=== PATIENT | female | born 1975 | race Caucasian/White ===

== ENCOUNTER 2016-12-15 15:41 | Outpatient (CLI) | payer OTHER ==
--- NOTE | 2016-12-17 09:09 | Mammography Report ---
BILATERAL DIGITAL SCREENING MAMMOGRAM with CAD: 12/15/16 15:41:00 CLINICAL: Baseline screening. FINDINGS: The breasts are heterogeneously dense, which may obscure small masses. No mass, architectural distortion or suspicious calcifications. IMPRESSION: No mammographic evidence of malignancy. BI-RADS CATEGORY: 1 - - Negative RECOMMENDATION: Routine mammographic screening in one year. COMMENT: Patient follow-up letters are generated by our [employer] application.
== END 2016-12-15 15:42 | disposition home or self-care (01) ==
LOC: SPVWC 15:41
PROVIDERS: ATTEND Obstetrics & Gynecology
DX: Z12.31 Encounter for screening mammogram for malignant neoplasm of breast (principal)
CPT/HCPCS: 77067; G0202

== ENCOUNTER 2017-12-23 15:52 | Outpatient (CLI) | payer OTHER ==
--- NOTE | 2017-12-25 08:20 | Mammography Report ---
BILATERAL DIGITAL SCREENING MAMMOGRAM with CAD: 12/23/17 15:52:00 CLINICAL: Routine screening. COMPARISON:12/15/16 FINDINGS: The breasts are heterogeneously dense, which may obscure small masses. No mass, architectural distortion or suspicious calcifications. IMPRESSION: No mammographic evidence of malignancy. BI-RADS CATEGORY: 1 - - Negative RECOMMENDATION: Routine mammographic screening in one year. COMMENT: Patient follow-up letters are generated by our [employer] application.
== END 2017-12-23 15:53 | disposition home or self-care (01) ==
LOC: SPVWC 15:52
PROVIDERS: ATTEND Obstetrics & Gynecology
DX: Z12.31 Encounter for screening mammogram for malignant neoplasm of breast (principal)
CPT/HCPCS: 77067

== ENCOUNTER 2018-12-31 09:53 | Outpatient (CLI) | payer OTHER ==
--- NOTE | 2018-12-31 14:17 | Mammography Report ---
BILATERAL DIGITAL SCREENING MAMMOGRAM with CAD and BILATERAL DIGITAL BREAST TOMOSYNTHESIS (DBT) : 12/31/18 00:00:00 CLINICAL: Routine screening. COMPARISON:12/23/17 and 12/15/16 FINDINGS: The breasts are heterogeneously dense, which may obscure small masses. Left asymmetries on zarina views (CC images 26 and 14 and MLO images 14 and 27) require additional imaging. No architectural distortion or suspicious calcifications. The right breast is negative. IMPRESSION: Left asymmetries requiring additional workup. BI-RADS CATEGORY: 0 - - Needs Additional Imaging RECOMMENDATION: Recall for left MLO and CC spot magnification views and left lower inner breast ultrasound. COMMENT: Patient follow-up letters are generated by our [employer] application.
== END 2018-12-31 09:54 | disposition home or self-care (01) ==
LOC: SPVWC 09:53
PROVIDERS: ATTEND Obstetrics & Gynecology
DX: Z12.31 Encounter for screening mammogram for malignant neoplasm of breast (principal)
CPT/HCPCS: 77063; 77067

== ENCOUNTER 2020-10-30 15:03 | Outpatient (CLI) | payer OTHER ==
--- NOTE | 2020-10-30 16:30 | Ultrasound Report ---
BILATERAL DIGITAL DIAGNOSTIC MAMMOGRAM WITH CAD CONVENTIONAL, 10/30/2020 LEFT LIMITED BREAST ULTRASOUND CLINICAL INFORMATION / INDICATION: Patient presents for follow-up of previously described probably be nign nodules in the left breast. TECHNIQUE: Digital bilateral mammographic imaging was performed. Limited ultrasound was performed. Th is examination was interpreted with the benefit of Computer-Aided Detection (CAD) analysis. COMPARISON: Prior mammograms 12/31/2018 and 12/23/2017, and left breast ultrasound 01/24/2019 FINDINGS: Breast Density: The breasts are heterogeneously dense, which may obscure small masses. MAMMOGRAPHIC FINDINGS: No dominant mass, suspicious calcifications, or architectural distortion in ei ther breast. There has been no significant change compared with the prior examinations. ULTRASOUND FINDINGS: Targeted ultrasound evaluation was performed of the area of interest. Targeted ultrasound demonstrates a stable benign-appearing hyperechoic focus in the left breast 9:00 position located 3 cm from the nipple measuring up to 4 mm. No suspicious cystic or solid lesion identified. IMPRESSION: 1. A small benign-appearing hyperechoic focus in the left breast is unchanged from prior examination and considered benign. No suspicious mammographic or sonographic abnormality identified. Follow up recommendation: Routine yearly BI-RADS Category 2: Benign. A "normal" or negative report should not discourage follow up or biopsy of a clinically significant f inding. A written summary of these findings will be mailed to the patient. The patient will be entered into a mammography reporting system which will generate a reminder letter for the patient's next appointmen t at the appropriate interval. According to the [employer], yearly mammograms are recommended starting at age 40 and continuing as long as a woman is in good health. Breast MRI is recommended for women with an marlene roximately 20-25% or greater lifetime risk of breast cancer, including women with a strong family his tory of breast or ovarian cancer and women who have been treated for Hodgkin's disease. Signer Name: Khloe Motta MD Signed: 10/30/2020 4:26 PM Workstation Name: [id number]
== END 2020-10-30 15:04 | disposition home or self-care (01) ==
LOC: SPVWC 15:03
PROVIDERS: ATTEND Obstetrics & Gynecology
DX: R92.8 Other abnormal and inconclusive findings on diagnostic imaging of breast (principal)
CPT/HCPCS: 77066

== ENCOUNTER 2022-01-08 08:46 | Outpatient (CLI) | payer OTHER ==
--- NOTE | 2022-01-09 10:42 | Mammography Report ---
DIGITAL SCREENING MAMMOGRAM WITH CAD, 01/08/2022 CLINICAL INFORMATION / INDICATION: Routine screening mammography. TECHNIQUE: Digital bilateral 2D mammography was obtained in the craniocaudal and mediolateral obliqu e projections. This examination was interpreted with the benefit of Computer-Aided Detection analysis . COMPARISON: 10/30/2020, 01/24/2019 FINDINGS: Breast Density: There are scattered areas of fibroglandular density. No dominant mass, suspicious calcifications, or architectural distortion in the right breast. There are a few benign-appearing nodules within the left breast. There is an 8 mm well-circumscribed round nodule in the left breast at 12-1:00 anterior depth. Additionally there is nodularity in the le ft breast at 3-4:00 posterior depth. This will need to be further evaluated with ultrasound. No other additional significant interval change. IMPRESSION: Left breast nodularity. Recommend left breast ultrasound to evaluate small nodule in the 12-1:00 position as well as in the 3-4:00 position of the breast as detailed above. Follow up recommendation: Ultrasound BI-RADS Category 0: INCOMPLETE. Needs additional imaging evaluation and/or prior mammograms for ayana gastelum. A "normal" or negative report should not discourage follow up or biopsy of a clinically significant f inding. A written summary of these findings will be mailed to the patient. The patient will be entered into a mammography reporting system which will generate a reminder letter for the patient's next appointmen t at the appropriate interval. The [employer] recommends yearly mammograms starting at age 40 and continuing as l yohannes as a woman is in good health. Breast MRI is recommended for women with an approximate 20-25% or greater lifetime risk of breast cancer, including women with a strong family history of breast or ova brenda cancer or who have been treated for Hodgkin's disease. Signer Name: Taylor Maya MD Signed: 01/09/2022 10:38 AM Workstation Name: [id number]
== END 2022-01-08 08:47 | disposition home or self-care (01) ==
LOC: SPVWC 08:46
PROVIDERS: ATTEND Obstetrics & Gynecology
DX: Z12.31 Encounter for screening mammogram for malignant neoplasm of breast (principal); N63.21 Unspecified lump in the left breast, upper outer quadrant
CPT/HCPCS: 77063; 77067

== ENCOUNTER 2022-02-18 15:04 | Outpatient (CLI) | payer OTHER ==
--- NOTE | 2022-02-18 16:43 | Ultrasound Report ---
ULTRASOUND BREAST LEFT LIMITED, 02/18/2022 CLINICAL INFORMATION / INDICATION: Patient presents as a callback from screening mammogram for furthe r evaluation of two oval circumscribed masses in the left breast. TECHNIQUE: Targeted ultrasound evaluation was performed of the area of interest. COMPARISON: Prior mammogram 01/08/2022 FINDINGS: Corresponding with the mammographic findings, there are two oval circumscribed hypoechoic masses, one in the left breast 12:00 position located 2 cm from the nipple measuring up to 1.1 x 0.5 x 0.9 cm, a nd the other in the 3:00 position located 4 cm from the nipple measuring up to 1.5 x 1.0 x 0.5 cm. Anibal th masses are parallel with no internal vascularity demonstrated. Incidental note is made of a few be nign-appearing echogenic foci in the 1:00 position of the left breast. IMPRESSION: 1. Two oval circumscribed hypoechoic masses are seen in the left breast and correspond with the recen t mammographic finding. These are considered probably benign and most likely reflect fibroadenomas. R ecommend left breast ultrasound in 6 months to ensure stability. Follow up recommendation: Short term follow up in 6 months. BI-RADS Category 3: PROBABLY BENIGN. Followup in 6 months. A normal or "negative" report should not preclude biopsy or follow-up of a clinically suspicious find ing. Signer Name: Khloe Motta MD Signed: 02/18/2022 4:39 PM Workstation Name: [id number]
== END 2022-02-18 15:05 | disposition home or self-care (01) ==
LOC: US 15:04
PROVIDERS: ATTEND Obstetrics & Gynecology
DX: N63.25 Unspecified lump in the left breast, overlapping quadrants (principal)